=== PATIENT | female | born 1960 | race Two or more races ===

== ENCOUNTER → 2022-11-19 06:00 | Outpatient (CLI) | payer OTHER ==
[~2022-11-19] VITALS: Ht 149.9 cm; Wt 68.0 kg
[~2022-11-19 06:00] MED LIST: B-COMPLEX1 EACH PO; BUSPIRONE HCL15 MG PO; CRESTOR40 MG PO; FOLIC PO; NAMENDA10 MG PO; PROTONIX PO; STELARA90 MG/1 ML PO; ZOLOFT50 MG PO
== END | disposition home or self-care (01) ==
LOC: LAB 06:00 → SURG 11-22 07:00 → EDSTATUS 11-22 10:15 → SURG 11-22 10:15
PROVIDERS: ATTEND Surgery
DX: R19.4 Change in bowel habit (principal); K50.118 Crohn's disease of large intestine with other complication; K60.3 Anal fistula; D37.4 Neoplasm of uncertain behavior of colon; Z03.818 Encounter for observation for suspected exposure to other biological agents ruled out; Z20.822 Contact with and (suspected) exposure to COVID-19

== ENCOUNTER 2023-03-02 11:57 | Inpatient (IN) | payer OTHER ==
[~2023-03-02] VITALS: Ht 152.4 cm; Wt 72.1 kg
[~2023-03-02 11:57] MED LIST changes: +B-122500 MC1; +FOLIC ACID1 MG; +HYOSCYAMINE0.125 M1 SL; +LEVOTHYROXINE100 MCG; +OMEGA-3 ACID ETH1 GM; +PANTOPRAZOLE SO40 MG; +VITAMIN D3125 MC1
[2023-03-05] MEDS ORDERED: NAMENDA10 MG PO (11:42)
[2023-03-05] MEDS ORDERED: BUSPIRONE HCL15 MG PO (11:42)
[2023-03-05] MEDS ORDERED: LEVOTHYROXINE100 MCG PO (11:42)
[2023-03-05] MEDS ORDERED: ZOLOFT50 MG PO (11:42)
[2023-03-05] MEDS ORDERED: FOLIC ACID1 MG PO (11:42)
[2023-03-05] MEDS ORDERED: PANTOPRAZOLE SO40 MG PO (11:42)
== END 2023-03-05 12:32 | disposition home or self-care (01) | DRG 395 ==
LOC: ER 11:57 → MEDI 18:42
PROVIDERS: ADMIT Internal Medicine Geriatric Medicine; ATTEND Internal Medicine Geriatric Medicine
PROC: BW21YZZ Computerized Tomography (CT Scan) of Abdomen and Pelvis using Other Contrast (ICD-10-PCS; principal; 2023-03-02)
PROC: BW21YZZ Computerized Tomography (CT Scan) of Abdomen and Pelvis using Other Contrast (ICD-10-PCS; 2023-03-04)
DX: K55.069 Acute infarction of intestine, part and extent unspecified (principal); E03.9 Hypothyroidism, unspecified; G30.8 Other Alzheimer's disease; F02.80 Dementia in other diseases classified elsewhere, unspecified severity, without behavioral disturbance, psychotic disturbance, mood disturbance, and anxiety